=== PATIENT | female | born 1965 | race Caucasian/White ===

== ENCOUNTER 2017-12-17 11:17 | Outpatient (CLI) | payer OTHER ==
[~2017-12-17 11:17] MED LIST: CALC-216 PO; CHRO400T6 PO; CINN500C7 PO; CLIN-79 PO; DIPH-423 PO; FISH1CAP14 PO; KEN0.1O TP; LISI-600 PO; LUTE20CA PO; MELA1TAB21 PO; MULT-1179 PO; [UNRECOGNIZED DRUG - CODE] PO; [UNRECOGNIZED DRUG - OTHER] PO
[2017-12-17 12:19] LABS: ALANINE AMINOTRANSFERASE 29 U/L (12-78); ALBUMIN 3.9 G/DL (3.4-5.0); ALBUMIN/GLOBULIN RATIO 1.1 (1.1-1.5); ALKALINE PHOSPHATASE 72 IU/L (46-116); ANION GAP 7 (8-16); ASPARTATE AMINO TRANSFERASE 14 U/L (10-37); BILIRUBIN,TOTAL 0.3 MG/DL (0.1-1.0); BLOOD UREA NITROGEN 16 MG/DL (7-18); BUN/CREATININE RATIO 21.9 (6.6-38.0); CHLORIDE 107 MMOL/L (99-107); CHOL/HDL RATIO 4.6 (0.00-4.99); CHOLESTEROL 162 MG/DL (0-200); CREATININE 0.73 MG/DL (0.40-0.90); GLUCOSE 89 MG/DL (70-104); HDL CHOLESTEROL 35 MG/DL (35-60); LDL CHOLESTEROL 99 MG/DL (50-100); POTASSIUM 4.1 MMOL/L (3.5-5.1); SODIUM 142 MMOL/L (135-145); TOTAL CARBON DIOXIDE 27.8 MMOL/L (24-32); TOTAL PROTEIN 7.6 G/DL (6.4-8.2); TRIGLYCERIDES 187 MG/DL (20-135); eGFR 83 ML/MIN
== END 2017-12-17 23:59 | disposition home or self-care (01) ==
LOC: LAB 11:17
PROVIDERS: ATTEND Family Medicine
DX: E78.5 Hyperlipidemia, unspecified (principal); I10 Essential (primary) hypertension; J45.909 Unspecified asthma, uncomplicated; Z67.40 Type O blood, Rh positive
CPT/HCPCS: 36415; 80053; 80061

== ENCOUNTER 2018-01-13 12:39 | Outpatient (CLI) | payer OTHER | END 2018-01-13 23:59 | disposition home or self-care (01) | LOC: RAD 12:39 | PROVIDERS: ATTEND Family Medicine | DX: M23.241 Derangement of anterior horn of lateral meniscus due to old tear or injury, right knee (principal); M25.461 Effusion, right knee; M17.11 Unilateral primary osteoarthritis, right knee | CPT/HCPCS: 73721 ==

== ENCOUNTER 2018-03-17 08:35 | Day surgery (SDC) | payer OTHER ==
[2018-03-09 15:31] LABS: BASOPHILS % (AUTO) 0.5 % (0-1); EOSINOPHILS # (AUTO) 0.2 X10'3 (0-0.9); EOSINOPHILS % (AUTO) 2.6 % (0-6); LYMPHOCYTES # (AUTO) 1.7 X10'3 (1.1-4.8); LYMPHOCYTES % (AUTO) 20.3 % (21-51); MEAN CORPUSCULAR HGB CONC 34.5 % (33.0-36.5); MEAN CORPUSCULAR VOLUME 86.8 FL (78-98); MEAN PLATELET VOLUME 8.9 FL (7.4-10.4); MONOCYTES # (AUTO) 0.5 X10'3 (0-0.9); MONOCYTES % (AUTO) 5.9 % (2-12); NEUTROPHILS # (AUTO) 5.8 X10'3 (1.8-7.7); NEUTROPHILS % (AUTO) 70.7 % (42-75); PRE OP HEMATOCRIT 39.7 % (35.0-45.0); PRE OP HEMOGLOBIN 13.7 g/dL (12.0-16.0); PRE OP PLATELET COUNT 219 X10'3 (140-440); RED BLOOD COUNT 4.57 X10'6 (4.20-5.60); RED CELL DISTRIBUTION WIDTH 12.7 % (11.5-14.5)
[2018-03-09 15:47] LABS: ALBUMIN 3.7 G/DL (3.4-5.0); ALBUMIN/GLOBULIN RATIO 1.1 (1.1-1.5); ALKALINE PHOSPHATASE 65 IU/L (46-116); BLOOD UREA NITROGEN 17 MG/DL (7-18); BUN/CREATININE RATIO 20.7 (6.6-38.0); CALCIUM 8.9 MG/DL (8.5-10.1); CHLORIDE 107 MMOL/L (99-107); CREATININE 0.82 MG/DL (0.40-0.90); PRE OP ALT 26 U/L (30-65); PRE OP ANION GAP 6 (8-16); PRE OP AST 14 U/L (10-37); PRE OP BILIRUB, TOTAL 0.3 MG/DL (0.0-1.0); PRE OP GLUCOSE 96 MG/DL (70-104); PRE OP POTASSIUM 3.9 MMOL/L (3.4-5.1); PRE OP SODIUM 144 MMOL/L (135-145); TOTAL CARBON DIOXIDE 31.1 MMOL/L (24-32); eGFR 73 ML/MIN
[2018-03-17] VITALS (13 sets, daily range): BP systolic 102–143; BP diastolic 55–82
[~2018-03-17] VITALS: Ht 160 cm; Wt 87.7 kg
[~2018-03-17 08:35] MED LIST changes: +ACET-2319 PO; +AMLO5TAB4 PO; -CALC-216 PO; -CHRO400T6 PO; -CINN500C7 PO; -CLIN-79 PO; -DIPH-423 PO; -FISH1CAP14 PO; +IBUP200C5 PO; -KEN0.1O TP; -LISI-600 PO; -LUTE20CA PO; -MULT-1179 PO; -[UNRECOGNIZED DRUG - CODE] PO; -[UNRECOGNIZED DRUG - OTHER] PO; +ceFAZolin inj. 2,000 MG in normal saline 100ml IV soln 100 ML IV ONE; +famotidine 20mg tablet PO ONE; +ringers solution, lacted 1,000 ML IV SCH
[2018-03-17] MEDS ORDERED: propofol inj 20 ML IV ONE (09:22)
[2018-03-17] MEDS ORDERED: LIDOcaine 2% (20mg/ml) 5ml vial ONE (09:22)
[2018-03-17] MEDS ORDERED: ROPIVAcaine 0.5% (5mg/ml) 30ml vial ONE (09:39)
[2018-03-17] MEDS ORDERED: sevoflurane 250ml liquid IH ONE (10:48)
[2018-03-17] MEDS ORDERED: fentaNYL/PF 50MCG/1 ML 2ML syringe ONE ×2 (10:49→11:05)
[2018-03-17] MEDS ORDERED: midazolam 2 mg/2 ml injection ONE (10:56)
[2018-03-17] MEDS ORDERED: ringers solution, lacted 1,000 ML IV SCH (11:32)
[2018-03-17] MEDS ORDERED: morphine 4 MG/ML inj SYRINge IV PRN ×2 (11:35)
[2018-03-17] MEDS ORDERED: meperidine/PF 25mg/ml syringe IV PRN ×2 (11:35)
[2018-03-17] MEDS ORDERED: ondansetron/PF 4mg/2ml inj IV PRN (11:35)
[2018-03-17] MEDS ORDERED: proCHLORperazine 10 MG/2 ml inj IV PRN (11:35)
[2018-03-17] MEDS ORDERED: ondansetron/PF 4mg/2ml inj ONE (12:04)
[2018-03-17] MEDS ORDERED: dexamethasone sod phosphate 4mg/ml inj. ONE (12:04)
[2018-03-17] MEDS: meperidine/PF 25mg/ml syringe IV PRN ×2 (12:07→12:23)
[2018-03-17] MEDS ORDERED: acetaminophen 1,000mg/100ml IV 100 ML IV ONE (13:10)
== END 2018-03-17 13:35 | disposition home or self-care (01) ==
LOC: PAS 08:35
PROVIDERS: ATTEND Orthopaedic Surgery
DX: S83.281A Other tear of lateral meniscus, current injury, right knee, initial encounter (principal); I10 Essential (primary) hypertension; E66.9 Obesity, unspecified; J45.998 Other asthma; M19.90 Unspecified osteoarthritis, unspecified site; Z79.1 Long term (current) use of non-steroidal anti-inflammatories (NSAID); Z79.891 Long term (current) use of opiate analgesic; Z68.34 Body mass index [BMI] 34.0-34.9, adult; Z72.89 Other problems related to lifestyle; Z88.2 Allergy status to sulfonamides; Z79.899 Other long term (current) drug therapy; Z90.710 Acquired absence of both cervix and uterus; X58.XXXA Exposure to other specified factors, initial encounter; Y93.89 Activity, other specified; Y92.89 Other specified places as the place of occurrence of the external cause; Y99.8 Other external cause status
CPT/HCPCS: 0232T; 29879; 29881; 36415; 80053; 85025; 93005; A6449; J0131; J0690; J1100; J2001; J2175; J2250; J2405; J2704; J2795; J3010; J7030; J7120; A7000

== ENCOUNTER 2018-03-23 13:53 | Outpatient (CLI) | payer OTHER ==
[~2018-03-23 13:53] MED LIST changes: -ceFAZolin inj. 2,000 MG in normal saline 100ml IV soln 100 ML IV ONE; -famotidine 20mg tablet PO ONE; -ringers solution, lacted 1,000 ML IV SCH
== END 2018-03-23 23:59 | disposition home or self-care (01) ==
LOC: VAS 13:53
PROVIDERS: ATTEND Orthopaedic Surgery
DX: I82.4Z1 Acute embolism and thrombosis of unspecified deep veins of right distal lower extremity (principal); I10 Essential (primary) hypertension; J45.909 Unspecified asthma, uncomplicated
CPT/HCPCS: 93971

== ENCOUNTER 2018-04-22 15:40 | Outpatient (CLI) | payer OTHER | END 2018-04-22 23:59 | disposition home or self-care (01) | LOC: VAS 15:40 | PROVIDERS: ATTEND Orthopaedic Surgery | DX: I82.4Z1 Acute embolism and thrombosis of unspecified deep veins of right distal lower extremity (principal); I10 Essential (primary) hypertension; J45.909 Unspecified asthma, uncomplicated | CPT/HCPCS: 93971 ==

== ENCOUNTER 2018-05-21 08:43 | Outpatient (CLI) | payer OTHER | END 2018-05-21 23:59 | disposition home or self-care (01) | LOC: VAS 08:43 | PROVIDERS: ATTEND Orthopaedic Surgery | DX: I82.541 Chronic embolism and thrombosis of right tibial vein (principal); M79.604 Pain in right leg | CPT/HCPCS: 93970 ==

== ENCOUNTER 2018-09-04 06:25 | Emergency (ER) | payer OTHER ==
[~2018-09-04] VITALS: Ht 160 cm; Wt 90.0 kg
[2018-09-04 07:09] LABS: CLARITY,URINE CLEAR (Clear); COLOR,URINE ORANGE (Yellow)
[2018-09-04 07:12] LABS: UA COLLECTION TYPE CLN CATCH MIDSTREAM
[2018-09-04 07:14] VITALS: BP 143/74
[2018-09-04 07:18] LABS: RBC,URINE 0-2 /HPF (0-2); WBC,URINE 0-4 /HPF (0-4)
[2018-09-04 07:19] LABS: MUCUS STRANDS MODERATE /LPF (Neg); SQUAMOUS EPITHELIAL CELL,UR FEW /LPF (FEW)
[2018-09-04] MEDS ORDERED: PHEN-786 PO (07:19)
[2018-09-04] MEDS ORDERED: CEPH500C5 PO (07:19)
[2018-09-04 07:20] LABS: BACTERIA,URINE 1+ /HPF (Neg)
[2018-09-04] MEDS ORDERED: phenazopyridine 100mg tablet PO ONE (07:20)
[2018-09-04] MEDS ORDERED: cephalexin 250mg capsule PO ONE (07:20)
== END 2018-09-04 07:41 | disposition home or self-care (01) ==
LOC: ER 06:26
DX: N39.0 Urinary tract infection, site not specified (principal); Z88.2 Allergy status to sulfonamides; Z79.899 Other long term (current) drug therapy; Z90.710 Acquired absence of both cervix and uterus
CPT/HCPCS: 81001; 99283

== ENCOUNTER 2019-06-15 07:47 | Outpatient (CLI) | payer OTHER ==
[~2019-06-15 07:47] MED LIST changes: +CEPH500C5 PO; +PHEN-786 PO
[2019-06-15 08:34] LABS: ALANINE AMINOTRANSFERASE 28 U/L (12-78); ALBUMIN 3.9 G/DL (3.4-5.0); ALBUMIN/GLOBULIN RATIO 1.1 (1.1-1.5); ALKALINE PHOSPHATASE 70 IU/L (46-116); ANION GAP 8 (8-16); ASPARTATE AMINO TRANSFERASE 12 U/L (10-37); BILIRUBIN,TOTAL 0.3 MG/DL (0.1-1.0); BLOOD UREA NITROGEN 15 MG/DL (7-18); BUN/CREATININE RATIO 19.5 (6.6-38.0); CALCIUM 8.6 MG/DL (8.5-10.1); CHLORIDE 107 MMOL/L (99-107); CHOL/HDL RATIO 4.1 (0.00-4.99); CHOLESTEROL 170 MG/DL (0-200); CREATININE 0.77 MG/DL (0.40-0.90); GLUCOSE 93 MG/DL (70-104); HDL CHOLESTEROL 41 MG/DL (35-60); LDL CHOLESTEROL 103 MG/DL (50-100); POTASSIUM 4.1 MMOL/L (3.5-5.1); SODIUM 144 MMOL/L (135-145); TOTAL CARBON DIOXIDE 29.2 MMOL/L (24-32); TOTAL PROTEIN 7.3 G/DL (6.4-8.2); TRIGLYCERIDES 174 MG/DL (20-135); eGFR 78 ML/MIN
== END 2019-06-15 23:59 | disposition home or self-care (01) ==
LOC: LAB 07:47
PROVIDERS: ATTEND Family Medicine
DX: Z00.00 Encounter for general adult medical examination without abnormal findings (principal)
CPT/HCPCS: 36415; 80053; 80061

== ENCOUNTER 2020-03-14 06:42 | Day surgery (SDC) | payer OTHER ==
[~2020-03-14] VITALS: Ht 160 cm; Wt 82.7 kg
[~2020-03-14 06:42] MED LIST changes: -CEPH500C5 PO
[2020-03-14 06:52] VITALS: BP 143/87
[2020-03-14] MEDS ORDERED: fentaNYL/PF 50MCG/1 ML 2ML syringe ONE (06:54)
[2020-03-14] MEDS ORDERED: MIDAZolam 5mg/5ml vial ONE (06:55)
[2020-03-14 07:43] VITALS: BP 130/75
[2020-03-14 07:53] VITALS: BP 124/62
[2020-03-14 08:03] VITALS: BP 120/66
[2020-03-14 08:13] VITALS: BP 135/67
== END 2020-03-14 08:25 | disposition home or self-care (01) ==
LOC: GI LAB 06:42
PROVIDERS: ATTEND Internal Medicine Gastroenterology
DX: Z12.11 Encounter for screening for malignant neoplasm of colon (principal); D12.2 Benign neoplasm of ascending colon; K57.30 Diverticulosis of large intestine without perforation or abscess without bleeding
CPT/HCPCS: 45380; 99152; J2250; J3010; 99153

== ENCOUNTER 2022-05-06 09:07 | Outpatient (CLI) | payer BC ==
[~2022-05-06 09:07] MED LIST changes: -IBUP200C5 PO; -MELA1TAB21 PO; -PHEN-786 PO
[2022-05-06 09:56] LABS: BASOPHILS % (AUTO) 0.8 % (0-1); EOSINOPHILS # (AUTO) 0.2 X10'3 (0-0.9); EOSINOPHILS % (AUTO) 3.2 % (0-6); HEMATOCRIT 41.2 % (35.0-45.0); HEMOGLOBIN 13.5 g/dl (12.0-16.0); LYMPHOCYTES # (AUTO) 1.3 X10'3 (1.1-4.8); LYMPHOCYTES % (AUTO) 23.1 % (21-51); MEAN CORPUSCULAR HEMOGLOBIN 28.8 PG (27.0-31.0); MEAN CORPUSCULAR HGB CONC 32.8 g/dL (33.0-36.5); MEAN CORPUSCULAR VOLUME 87.8 FL (78-98); MEAN PLATELET VOLUME 8.9 FL (7.4-10.4); MONOCYTES # (AUTO) 0.4 X10'3 (0-0.9); MONOCYTES % (AUTO) 8.1 % (2-12); NEUTROPHILS # (AUTO) 3.5 X10'3 (1.8-7.7); NEUTROPHILS % (AUTO) 64.8 % (42-75); PLATELET COUNT 192 X10'3 (140-440); RED BLOOD COUNT 4.69 X10'6 (4.20-5.60); WHITE BLOOD COUNT 5.5 X10'3 (4.5-11.0)
[2022-05-06 10:10] LABS: CLARITY,URINE SLIGHTLY CLOUDY (Clear); COLOR,URINE YELLOW (Yellow); GLUCOSE, URINE NEGATIVE (Neg); KETONES,URINE NEGATIVE (Neg); LEUKOCYTE ESTERASE ,URINE NEGATIVE (Neg); NITRITES, URINE NEGATIVE (Neg); OCCULT BLOOD,URINE NEGATIVE (Neg); PH,URINE 5.5 (4.8-8.0); PROTEIN,URINE NEGATIVE (Neg); UROBILINOGEN,URINE 0.2 E.U/dL (0.2-1.0)
[2022-05-06 10:11] LABS: ALANINE AMINOTRANSFERASE 34 U/L (12-78); ALBUMIN 3.5 G/DL (3.4-5.0); ALKALINE PHOSPHATASE 70 IU/L (46-116); ANION GAP 8 (8-16); ASPARTATE AMINO TRANSFERASE 14 U/L (10-37); BILIRUBIN,TOTAL 0.3 MG/DL (0.1-1.0); BLOOD UREA NITROGEN 16 MG/DL (7-18); BUN/CREATININE RATIO 25.8 (6.6-38.0); CALCIUM 8.3 MG/DL (8.5-10.1); CHLORIDE 109 MMOL/L (99-107); CHOLESTEROL 164 MG/DL (0-200); CREATININE 0.62 MG/DL (0.40-0.90); GLUCOSE 106 MG/DL (70-104); HDL CHOLESTEROL 41 MG/DL (35-60); LDL CHOLESTEROL 95 MG/DL (50-100); POTASSIUM 3.8 MMOL/L (3.5-5.1); SODIUM 144 MMOL/L (135-145); TOTAL CARBON DIOXIDE 26.6 MMOL/L (24-32); TOTAL PROTEIN 7.1 G/DL (6.4-8.2); TRIGLYCERIDES 148 MG/DL (20-135); eGFR > 90 ML/MIN
[2022-05-06 11:01] LABS: MUCUS STRANDS FEW /LPF (Neg); SQUAMOUS EPITHELIAL CELL,UR FEW /LPF (FEW); UA COLLECTION TYPE NON-SPECIFIED
[2022-05-06 11:02] LABS: BACTERIA,URINE 1+ /HPF (Neg); RBC,URINE 0-2 /HPF (0-2); WBC,URINE 0-4 /HPF (0-4)
== END 2022-05-06 23:59 | disposition home or self-care (01) ==
LOC: LAB 09:07
PROVIDERS: ATTEND Internal Medicine
DX: R53.83 Other fatigue (principal); R63.5 Abnormal weight gain; R78.5 Finding of other psychotropic drug in blood; I10 Essential (primary) hypertension; M79.671 Pain in right foot; M79.672 Pain in left foot; M25.561 Pain in right knee; M25.562 Pain in left knee; G89.29 Other chronic pain
CPT/HCPCS: 36415; 80053; 80061; 81001; 82607; 82746; 84439; 84443; 85025; 85651

== ENCOUNTER 2022-08-04 11:06 | Outpatient (CLI) | payer BC | END 2022-08-04 23:59 | disposition home or self-care (01) | LOC: RAD 11:06 → EEVIPCON 11:30 → RAD 23:59 | PROVIDERS: ATTEND Podiatrist Foot & Ankle Surgery | DX: S93.492A Sprain of other ligament of left ankle, initial encounter (principal); M25.871 Other specified joint disorders, right ankle and foot; M76.62 Achilles tendinitis, left leg; M76.61 Achilles tendinitis, right leg; M76.71 Peroneal tendinitis, right leg; X58.XXXA Exposure to other specified factors, initial encounter; Y93.89 Activity, other specified; Y92.89 Other specified places as the place of occurrence of the external cause; Y99.8 Other external cause status | CPT/HCPCS: 73718; 73721 ==

== ENCOUNTER 2022-08-28 07:29 | Outpatient (CLI) | payer BC ==
[2022-08-28 08:15] LABS: BASOPHILS # (AUTO) 0.1 X10'3 (0-0.2); BASOPHILS % (AUTO) 1.1 % (0-1); EOSINOPHILS # (AUTO) 0.1 X10'3 (0-0.9); EOSINOPHILS % (AUTO) 2.9 % (0-6); HEMATOCRIT 42.3 % (35.0-45.0); HEMOGLOBIN 14.5 g/dl (12.0-16.0); LYMPHOCYTES # (AUTO) 1.5 X10'3 (1.1-4.8); LYMPHOCYTES % (AUTO) 31.1 % (21-51); MEAN CORPUSCULAR HEMOGLOBIN 29.4 PG (27.0-31.0); MEAN CORPUSCULAR HGB CONC 34.1 g/dL (33.0-36.5); MEAN PLATELET VOLUME 8.3 FL (7.4-10.4); MONOCYTES # (AUTO) 0.5 X10'3 (0-0.9); NEUTROPHILS # (AUTO) 2.6 X10'3 (1.8-7.7); NEUTROPHILS % (AUTO) 54.9 % (42-75); PLATELET COUNT 198 X10'3 (140-440); RED BLOOD COUNT 4.92 X10'6 (4.20-5.60); RED CELL DISTRIBUTION WIDTH 13.1 % (11.5-14.5); WHITE BLOOD COUNT 4.8 X10'3 (4.5-11.0)
[2022-08-28 08:27] LABS: ALANINE AMINOTRANSFERASE 43 U/L (12-78); ALBUMIN 3.7 G/DL (3.4-5.0); ALBUMIN/GLOBULIN RATIO 1.1 (1.1-1.5); ALKALINE PHOSPHATASE 77 IU/L (46-116); ANION GAP 8 (8-16); ASPARTATE AMINO TRANSFERASE 23 U/L (10-37); BILIRUBIN,TOTAL 0.3 MG/DL (0.1-1.0); BLOOD UREA NITROGEN 17 MG/DL (7-18); BUN/CREATININE RATIO 19.3 (6.6-38.0); CALCIUM 8.9 MG/DL (8.5-10.1); CHLORIDE 106 MMOL/L (99-107); CHOL/HDL RATIO 4.3 (0.00-4.99); CHOLESTEROL 202 MG/DL (0-200); CREATININE 0.88 MG/DL (0.40-0.90); GLUCOSE 118 MG/DL (70-104); HDL CHOLESTEROL 47 MG/DL (35-60); LDL CHOLESTEROL 122 MG/DL (50-100); POTASSIUM 3.8 MMOL/L (3.5-5.1); SODIUM 143 MMOL/L (135-145); TOTAL CARBON DIOXIDE 28.9 MMOL/L (24-32); TOTAL PROTEIN 7.1 G/DL (6.4-8.2); TRIGLYCERIDES 192 MG/DL (20-135); eGFR 66 ML/MIN
[2022-08-28 08:29] LABS: % IRON SATURATION 30 % (11-46); IRON 96 UG/DL (49-151); TOTAL IRON BINDING CAPACITY 322 UG/DL (259-388)
[2022-08-28 09:11] LABS: HEMOGLOBIN A1C 5.9 % (4.5-6.2)
== END 2022-08-28 23:59 | disposition home or self-care (01) ==
LOC: LAB 07:29
PROVIDERS: ATTEND Internal Medicine
DX: U07.1 COVID-19 (principal); R71.8 Other abnormality of red blood cells; R53.82 Chronic fatigue, unspecified; R63.5 Abnormal weight gain; M76.62 Achilles tendinitis, left leg; R73.01 Impaired fasting glucose; E78.2 Mixed hyperlipidemia; I10 Essential (primary) hypertension
CPT/HCPCS: 36415; 80053; 80061; 83036; 83540; 83550; 85025

== ENCOUNTER 2023-01-26 10:24 | Outpatient (CLI) | payer BC ==
[2023-01-26 10:51] LABS: BASOPHILS % (AUTO) 0.8 % (0-1); EOSINOPHILS # (AUTO) 0.1 X10'3 (0-0.9); EOSINOPHILS % (AUTO) 2.4 % (0-6); HEMATOCRIT 42.7 % (35.0-45.0); HEMOGLOBIN 14.1 g/dl (12.0-16.0); LYMPHOCYTES # (AUTO) 1.6 X10'3 (1.1-4.8); LYMPHOCYTES % (AUTO) 28.3 % (21-51); MEAN CORPUSCULAR HEMOGLOBIN 29.3 PG (27.0-31.0); MEAN CORPUSCULAR HGB CONC 33.1 g/dL (33.0-36.5); MEAN CORPUSCULAR VOLUME 88.5 FL (78-98); MEAN PLATELET VOLUME 8.4 FL (7.4-10.4); MONOCYTES # (AUTO) 0.5 X10'3 (0-0.9); MONOCYTES % (AUTO) 8.2 % (2-12); NEUTROPHILS # (AUTO) 3.4 X10'3 (1.8-7.7); NEUTROPHILS % (AUTO) 60.3 % (42-75); PLATELET COUNT 207 X10'3 (140-440); RED BLOOD COUNT 4.82 X10'6 (4.20-5.60); RED CELL DISTRIBUTION WIDTH 12.5 % (11.5-14.5); WHITE BLOOD COUNT 5.6 X10'3 (4.5-11.0)
[2023-01-26 11:05] LABS: ALANINE AMINOTRANSFERASE 32 U/L (12-78); ALBUMIN 3.7 G/DL (3.4-5.0); ALBUMIN/GLOBULIN RATIO 1.1 (1.1-1.5); ALKALINE PHOSPHATASE 68 IU/L (46-116); ANION GAP 9 (8-16); ASPARTATE AMINO TRANSFERASE 19 U/L (10-37); BILIRUBIN,TOTAL 0.3 MG/DL (0.1-1.0); BLOOD UREA NITROGEN 14 MG/DL (7-18); BUN/CREATININE RATIO 18.9 (10.0-20.0); CALCIUM 8.7 MG/DL (8.5-10.1); CHLORIDE 106 MMOL/L (99-107); CREATININE 0.74 MG/DL (0.40-0.90); GLUCOSE 115 MG/DL (70-104); POTASSIUM 4.2 MMOL/L (3.5-5.1); SODIUM 144 MMOL/L (135-145); TOTAL CARBON DIOXIDE 29.2 MMOL/L (24-32); TOTAL PROTEIN 7.1 G/DL (6.4-8.2); eGFR 80 ML/MIN
[2023-01-26 11:13] LABS: HEMOGLOBIN A1C 6.1 % (4.5-6.2)
[2023-01-26 11:15] LABS: CHOL/HDL RATIO 4.3 (0.00-4.99); CHOLESTEROL 182 MG/DL (0-200); HDL CHOLESTEROL 42 MG/DL (35-60); LDL CHOLESTEROL 106 MG/DL (50-100); TRIGLYCERIDES 186 MG/DL (20-135)
== END 2023-01-26 23:59 | disposition home or self-care (01) ==
LOC: LAB 10:24
PROVIDERS: ATTEND Internal Medicine
DX: E78.2 Mixed hyperlipidemia (principal); I10 Essential (primary) hypertension; R73.01 Impaired fasting glucose; R53.82 Chronic fatigue, unspecified; R63.5 Abnormal weight gain; L23.9 Allergic contact dermatitis, unspecified cause; M76.61 Achilles tendinitis, right leg; M76.62 Achilles tendinitis, left leg; M72.2 Plantar fascial fibromatosis
CPT/HCPCS: 36415; 80053; 80061; 83036; 84439; 84443; 85025; 85651

== ENCOUNTER 2023-06-25 15:59 | Emergency (ER) | payer BC ==
[~2023-06-25] VITALS: Ht 160 cm; Wt 94.5 kg
[2023-06-25 16:09] VITALS: BP 190/81; PULSE 77; RESP 16; TEMP 98.3; O2SAT 98
[2023-06-25 17:17] LABS: CLARITY,URINE CLEAR (Clear); COLOR,URINE ORANGE (Yellow); UA COLLECTION TYPE CLN CATCH MIDSTREAM
[2023-06-25 17:18] LABS: BACTERIA,URINE NONE SEEN /HPF (Neg); RBC,URINE NONE SEEN /HPF (0-2); SQUAMOUS EPITHELIAL CELL,UR FEW /LPF (FEW); WBC,URINE NONE SEEN /HPF (0-4)
[2023-06-25] MEDS ORDERED: CEPH-585 PO (20:03)
[2023-06-25] MEDS ORDERED: cephalexin 500mg capsule PO ONE (20:05)
== END 2023-06-25 20:22 | disposition home or self-care (01) ==
LOC: ER 15:59
DX: R30.0 Dysuria (principal); Z87.440 Personal history of urinary (tract) infections; Z88.1 Allergy status to other antibiotic agents; Z79.2 Long term (current) use of antibiotics; Z79.899 Other long term (current) drug therapy; Z90.710 Acquired absence of both cervix and uterus
CPT/HCPCS: 81001; 99283

== ENCOUNTER 2023-08-03 10:06 | Outpatient (CLI) | payer BC ==
[2023-08-03 11:05] LABS: BASOPHILS # (AUTO) 0.1 X10'3 (0-0.2); EOSINOPHILS # (AUTO) 0.1 X10'3 (0-0.9); EOSINOPHILS % (AUTO) 2.4 % (0-6); HEMOGLOBIN 14.2 g/dl (12.0-16.0); LYMPHOCYTES # (AUTO) 1.4 X10'3 (1.1-4.8); LYMPHOCYTES % (AUTO) 27.5 % (21-51); MEAN CORPUSCULAR HEMOGLOBIN 29.2 PG (27.0-31.0); MEAN CORPUSCULAR VOLUME 88.7 FL (78-98); MEAN PLATELET VOLUME 8.7 FL (7.4-10.4); MONOCYTES # (AUTO) 0.4 X10'3 (0-0.9); MONOCYTES % (AUTO) 7.9 % (2-12); NEUTROPHILS # (AUTO) 3.2 X10'3 (1.8-7.7); NEUTROPHILS % (AUTO) 61.2 % (42-75); PLATELET COUNT 224 X10'3 (140-440); RED BLOOD COUNT 4.85 X10'6 (4.20-5.60); RED CELL DISTRIBUTION WIDTH 13.1 % (11.5-14.5); WHITE BLOOD COUNT 5.2 X10'3 (4.5-11.0)
[2023-08-03 11:36] LABS: ALANINE AMINOTRANSFERASE 27 U/L (12-78); ALBUMIN 3.7 G/DL (3.4-5.0); ALBUMIN/GLOBULIN RATIO 1.1 (1.1-1.5); ALKALINE PHOSPHATASE 75 IU/L (46-116); ANION GAP 5 (8-16); ASPARTATE AMINO TRANSFERASE 15 U/L (10-37); BILIRUBIN,TOTAL 0.3 MG/DL (0.1-1.0); BLOOD UREA NITROGEN 13 MG/DL (7-18); BUN/CREATININE RATIO 17.6 (10.0-20.0); CALCIUM 8.7 MG/DL (8.5-10.1); CHLORIDE 104 MMOL/L (99-107); CHOL/HDL RATIO 4.4 (0.00-4.99); CHOLESTEROL 189 MG/DL (0-200); CREATININE 0.74 MG/DL (0.40-0.90); FREE T4 (FREE THYROXINE) 0.95 NG/DL (0.73-1.40); GLUCOSE 105 MG/DL (70-104); HDL CHOLESTEROL 43 MG/DL (35-60); LDL CHOLESTEROL 109 MG/DL (50-100); POTASSIUM 3.9 MMOL/L (3.5-5.1); SODIUM 139 MMOL/L (135-145); THYROID STIMULATING HORMONE 1.75 ulU/ml (0.34-4.50); TOTAL CARBON DIOXIDE 29.6 MMOL/L (24-32); TOTAL PROTEIN 7.1 G/DL (6.4-8.2); TRIGLYCERIDES 217 MG/DL (20-135); eGFR 80 ML/MIN
[2023-08-03 11:38] LABS: HEMOGLOBIN A1C 6.1 % (4.5-6.2)
== END 2023-08-03 23:59 | disposition home or self-care (01) ==
LOC: LAB 10:06
PROVIDERS: ATTEND Internal Medicine
DX: R73.03 Prediabetes (principal); M25.561 Pain in right knee; M25.562 Pain in left knee; G89.29 Other chronic pain; M79.671 Pain in right foot; M79.672 Pain in left foot; L30.9 Dermatitis, unspecified; R63.5 Abnormal weight gain; I10 Essential (primary) hypertension; E78.2 Mixed hyperlipidemia
CPT/HCPCS: 36415; 80053; 80061; 83036; 84439; 84443; 85025; 85651

== ENCOUNTER 2023-09-15 12:27 | Outpatient (CLI) | payer BC | END 2023-09-15 23:59 | disposition home or self-care (01) | LOC: RAD 12:27 | PROVIDERS: ATTEND Orthopaedic Surgery | DX: M17.11 Unilateral primary osteoarthritis, right knee (principal); M85.88 Other specified disorders of bone density and structure, other site; M25.78 Osteophyte, vertebrae; M25.561 Pain in right knee | CPT/HCPCS: 73564 ==

== ENCOUNTER → 2023-11-02 | Outpatient (CLI) | payer BC | END | disposition home or self-care (01) | LOC: VAS 08:47 | PROVIDERS: ATTEND Family Medicine | DX: I34.81 Nonrheumatic mitral (valve) annulus calcification (principal); I20.89 Other forms of angina pectoris; I10 Essential (primary) hypertension; R42 Dizziness and giddiness; Z82.49 Family history of ischemic heart disease and other diseases of the circulatory system | CPT/HCPCS: 93306; 93356; 93880 ==

== ENCOUNTER 2023-11-11 07:58 | Emergency (ER) | payer BC ==
[~2023-11-11] VITALS: Ht 160 cm; Wt 94.1 kg
[2023-11-11 10:40] LABS: URINE HCG NEGATIVE (NEG)
[2023-11-11 10:41] LABS: CLARITY,URINE SLIGHTLY CLOUDY (Clear); COLOR,URINE ORANGE (Yellow); UA COLLECTION TYPE CLN CATCH MIDSTREAM
[2023-11-11 10:50] LABS: HYALINE CASTS 0-3 /LPF (NEGATIVE); MUCUS STRANDS MODERATE /LPF (Neg); SQUAMOUS EPITHELIAL CELL,UR FEW /LPF (FEW)
[2023-11-11 10:51] LABS: BACTERIA,URINE FEW /HPF (Neg); RBC,URINE 0-2 /HPF (0-2); WBC,URINE 0-4 /HPF (0-4)
[2023-11-11] MEDS ORDERED: PHEN-716 PO (12:48)
[2023-11-11] MEDS ORDERED: CefTRIAXone 1000mg IM Kit (w/lidocaine diluent) IM ONE (12:50)
[2023-11-11 13:00] VITALS: BP 169/88; PULSE 60; RESP 18; TEMP 98.1; O2SAT 100
== END 2023-11-11 13:02 | disposition home or self-care (01) ==
LOC: ER 07:59
DX: N39.0 Urinary tract infection, site not specified (principal); Z90.710 Acquired absence of both cervix and uterus
CPT/HCPCS: 81001; 81025; 96372; 99283; J0696

== ENCOUNTER 2023-11-16 17:50 | Emergency (ER) | payer BC ==
[~2023-11-16] VITALS: Ht 160 cm; Wt 93.6 kg
[~2023-11-16 17:50] MED LIST changes: +PHEN-716 PO
[2023-11-16 18:44] VITALS: TEMP 98
[2023-11-16 19:26] LABS: BILIRUBIN,URINE NEGATIVE (Neg); CLARITY,URINE CLEAR (Clear); COLOR,URINE YELLOW (Yellow); GLUCOSE, URINE NEGATIVE (Neg); KETONES,URINE NEGATIVE (Neg); LEUKOCYTE ESTERASE ,URINE NEGATIVE (Neg); NITRITES, URINE NEGATIVE (Neg); OCCULT BLOOD,URINE NEGATIVE (Neg); PROTEIN,URINE NEGATIVE (Neg); UROBILINOGEN,URINE 0.2 E.U/dL (0.2-1.0)
[2023-11-16 19:31] LABS: UA COLLECTION TYPE CLN CATCH MIDSTREAM
[2023-11-16 23:07] LABS: BILIRUBIN,URINE NEGATIVE (Neg); CLARITY,URINE CLEAR (Clear); COLOR,URINE YELLOW (Yellow); GLUCOSE, URINE NEGATIVE (Neg); KETONES,URINE NEGATIVE (Neg); LEUKOCYTE ESTERASE ,URINE NEGATIVE (Neg); NITRITES, URINE NEGATIVE (Neg); OCCULT BLOOD,URINE NEGATIVE (Neg); PROTEIN,URINE NEGATIVE (Neg); UROBILINOGEN,URINE 0.2 E.U/dL (0.2-1.0)
[2023-11-16 23:09] LABS: UA COLLECTION TYPE CLN CATCH MIDSTREAM
[2023-11-16 23:12] LABS: BASOPHILS # (AUTO) 0.1 X10'3 (0-0.2); BASOPHILS % (AUTO) 0.9 % (0-1); EOSINOPHILS # (AUTO) 0.2 X10'3 (0-0.9); EOSINOPHILS % (AUTO) 2.5 % (0-6); HEMATOCRIT 46.1 % (35.0-45.0); HEMOGLOBIN 15.2 g/dl (12.0-16.0); LYMPHOCYTES # (AUTO) 2.5 X10'3 (1.1-4.8); LYMPHOCYTES % (AUTO) 33.6 % (21-51); MEAN CORPUSCULAR HEMOGLOBIN 29.2 PG (27.0-31.0); MEAN CORPUSCULAR VOLUME 88.5 FL (78-98); MEAN PLATELET VOLUME 8.7 FL (7.4-10.4); MONOCYTES # (AUTO) 0.5 X10'3 (0-0.9); MONOCYTES % (AUTO) 7.1 % (2-12); NEUTROPHILS # (AUTO) 4.2 X10'3 (1.8-7.7); NEUTROPHILS % (AUTO) 55.9 % (42-75); PLATELET COUNT 237 X10'3 (140-440); RED BLOOD COUNT 5.21 X10'6 (4.20-5.60); RED CELL DISTRIBUTION WIDTH 12.9 % (11.5-14.5); WHITE BLOOD COUNT 7.5 X10'3 (4.5-11.0)
[2023-11-16 23:17] VITALS: BP 166/90; PULSE 58; RESP 18; O2SAT 100
[2023-11-16 23:19] LABS: ALBUMIN 4.2 G/DL (3.4-5.0); ANION GAP 9 (8-16); BLOOD UREA NITROGEN 19 MG/DL (7-18); BUN/CREATININE RATIO 26.4 (10.0-20.0); CALCIUM 9.5 MG/DL (8.5-10.1); CHLORIDE 102 MMOL/L (99-107); CREATININE 0.72 MG/DL (0.40-0.90); GLUCOSE 97 MG/DL (70-104); LIPASE 32 U/L (16-77); POTASSIUM 3.6 MMOL/L (3.5-5.1); SODIUM 139 MMOL/L (135-145); TOTAL CARBON DIOXIDE 27.8 MMOL/L (24-32); eCRCL 69 ML/MIN; eGFR 83 ML/MIN
[2023-11-16] MEDS ORDERED: NITR100C6 PO (23:32)
== END 2023-11-16 23:51 | disposition home or self-care (01) ==
LOC: ER 17:50
DX: N39.0 Urinary tract infection, site not specified (principal); Z88.2 Allergy status to sulfonamides; Z79.899 Other long term (current) drug therapy
CPT/HCPCS: 36415; 80048; 81003; 83690; 85025; 99283

== ENCOUNTER 2024-01-06 17:57 | Emergency (ER) | payer BC ==
[~2024-01-06] VITALS: Ht 160 cm; Wt 95.0 kg
[~2024-01-06 17:57] MED LIST changes: +NITR100C6 PO
[2024-01-06 18:55] LABS: BASOPHILS # (AUTO) 0.1 X10'3 (0-0.2); BASOPHILS % (AUTO) 1.4 % (0-1); EOSINOPHILS # (AUTO) 0.1 X10'3 (0-0.9); EOSINOPHILS % (AUTO) 1.5 % (0-6); HEMATOCRIT 44.5 % (35.0-45.0); LYMPHOCYTES # (AUTO) 1.9 X10'3 (1.1-4.8); LYMPHOCYTES % (AUTO) 21.5 % (21-51); MEAN CORPUSCULAR HEMOGLOBIN 29.5 PG (27.0-31.0); MEAN CORPUSCULAR HGB CONC 33.6 g/dL (33.0-36.5); MEAN CORPUSCULAR VOLUME 87.9 FL (78-98); MONOCYTES # (AUTO) 0.7 X10'3 (0-0.9); MONOCYTES % (AUTO) 7.9 % (2-12); NEUTROPHILS # (AUTO) 6.1 X10'3 (1.8-7.7); NEUTROPHILS % (AUTO) 67.7 % (42-75); PLATELET COUNT 229 X10'3 (140-440); RED BLOOD COUNT 5.07 X10'6 (4.20-5.60); RED CELL DISTRIBUTION WIDTH 12.8 % (11.5-14.5); WHITE BLOOD COUNT 8.9 X10'3 (4.5-11.0)
[2024-01-06 19:10] LABS: ALANINE AMINOTRANSFERASE 27 U/L (12-78); ALBUMIN 3.9 G/DL (3.4-5.0); ALBUMIN/GLOBULIN RATIO 1.1 (1.1-1.5); ALKALINE PHOSPHATASE 69 IU/L (46-116); ANION GAP 12 (8-16); ASPARTATE AMINO TRANSFERASE 18 U/L (10-37); BILIRUBIN,TOTAL 0.4 MG/DL (0.1-1.0); BLOOD UREA NITROGEN 17 MG/DL (7-18); CALCIUM 8.8 MG/DL (8.5-10.1); CHLORIDE 106 MMOL/L (99-107); CREATININE 0.85 MG/DL (0.40-0.90); GLUCOSE 89 MG/DL (70-104); LIPASE 25 U/L (16-77); POTASSIUM 3.9 MMOL/L (3.5-5.1); SODIUM 142 MMOL/L (135-145); TOTAL CARBON DIOXIDE 24.1 MMOL/L (24-32); TOTAL PROTEIN 7.5 G/DL (6.4-8.2); eCRCL 58 ML/MIN; eGFR 68 ML/MIN
[2024-01-06] MEDS: ibuprofen tablet 400 MG TABLET PO ONE (23:12)
[2024-01-06] MEDS: acetaminophen 325mg tablet PO ONE (23:13)
[2024-01-06 23:25] LABS: URINE HCG NEGATIVE (NEG)
[2024-01-06 23:27] LABS: BILIRUBIN,URINE NEGATIVE (Neg); CLARITY,URINE CLEAR (Clear); COLOR,URINE STRAW (Yellow); GLUCOSE, URINE NEGATIVE (Neg); KETONES,URINE NEGATIVE (Neg); LEUKOCYTE ESTERASE ,URINE NEGATIVE (Neg); NITRITES, URINE NEGATIVE (Neg); OCCULT BLOOD,URINE NEGATIVE (Neg); PH,URINE 5.5 (4.8-8.0); PROTEIN,URINE NEGATIVE (Neg); UROBILINOGEN,URINE 0.2 E.U/dL (0.2-1.0)
[2024-01-06 23:31] LABS: UA COLLECTION TYPE CLN CATCH MIDSTREAM
[2024-01-07 00:35] VITALS: BP 152/78; PULSE 70; RESP 16; TEMP 97.8; O2SAT 95
== END 2024-01-07 00:39 | disposition home or self-care (01) ==
LOC: ER 17:58
DX: I88.0 Nonspecific mesenteric lymphadenitis (principal); I10 Essential (primary) hypertension; Z88.2 Allergy status to sulfonamides; Z79.899 Other long term (current) drug therapy; Z90.710 Acquired absence of both cervix and uterus
CPT/HCPCS: 36415; 74176; 80053; 81003; 81025; 83690; 85025; 99284

== ENCOUNTER 2024-01-22 09:03 | Outpatient (CLI) | payer BC ==
[2024-01-22] VITALS (7 sets, daily range): BP systolic 128–149; BP diastolic 57–73; PULSE 56–85; RESP 18; O2SAT 97–100
[2024-01-22] MEDS ORDERED: normal saline 1000ml 1,000 ML IV SCH (09:35)
[2024-01-22] MEDS ORDERED: nitroGLYCERIN 0.4mg SUBLingual tab SL PRN (09:35)
[2024-01-22] MEDS ORDERED: aminophylline 250mg/10ml inj. IV PRN (09:35)
[2024-01-22] MEDS: regadenoson 0.4mg/5ml syringe IV ONE (10:19)
== END 2024-01-22 23:59 | disposition home or self-care (01) ==
LOC: RAD 09:03
PROVIDERS: ATTEND Internal Medicine Interventional Cardiology
DX: Z01.818 Encounter for other preprocedural examination (principal); I20.89 Other forms of angina pectoris
CPT/HCPCS: 78452; 93017; A9500; J2785; J7030; J0280

== ENCOUNTER 2024-02-01 09:01 | Outpatient (CLI) | payer BC ==
[2024-02-01 09:56] LABS: BILIRUBIN,URINE NEGATIVE (Neg); CLARITY,URINE SLIGHTLY CLOUDY (Clear); COLOR,URINE YELLOW (Yellow); GLUCOSE, URINE NEGATIVE (Neg); KETONES,URINE NEGATIVE (Neg); LEUKOCYTE ESTERASE ,URINE NEGATIVE (Neg); NITRITES, URINE NEGATIVE (Neg); OCCULT BLOOD,URINE NEGATIVE (Neg); PH,URINE 5.5 (4.8-8.0); PROTEIN,URINE NEGATIVE (Neg); UROBILINOGEN,URINE 0.2 E.U/dL (0.2-1.0)
[2024-02-01 09:57] LABS: BASOPHILS # (AUTO) 0.1 X10'3 (0-0.2); EOSINOPHILS # (AUTO) 0.1 X10'3 (0-0.9); HEMATOCRIT 43.6 % (35.0-45.0); HEMOGLOBIN 14.4 g/dl (12.0-16.0); LYMPHOCYTES # (AUTO) 1.3 X10'3 (1.1-4.8); LYMPHOCYTES % (AUTO) 22.3 % (21-51); MEAN CORPUSCULAR HEMOGLOBIN 29.4 PG (27.0-31.0); MEAN CORPUSCULAR HGB CONC 33.1 g/dL (33.0-36.5); MEAN CORPUSCULAR VOLUME 88.7 FL (78-98); MONOCYTES # (AUTO) 0.4 X10'3 (0-0.9); MONOCYTES % (AUTO) 7.5 % (2-12); NEUTROPHILS # (AUTO) 3.8 X10'3 (1.8-7.7); NEUTROPHILS % (AUTO) 67.2 % (42-75); PLATELET COUNT 214 X10'3 (140-440); RED BLOOD COUNT 4.92 X10'6 (4.20-5.60); WHITE BLOOD COUNT 5.7 X10'3 (4.5-11.0)
[2024-02-01 10:03] LABS: UA COLLECTION TYPE CLN CATCH MIDSTREAM
[2024-02-01 10:15] LABS: RBC,URINE 0-2 /HPF (0-2); SQUAMOUS EPITHELIAL CELL,UR MODERATE /LPF (FEW); WBC,URINE 0-4 /HPF (0-4)
[2024-02-01 10:16] LABS: BACTERIA,URINE FEW /HPF (Neg)
[2024-02-01 10:20] LABS: HEMOGLOBIN A1C 6.1 % (4.5-6.2)
[2024-02-01 10:27] LABS: ALANINE AMINOTRANSFERASE 31 U/L (12-78); ALBUMIN 3.4 G/DL (3.4-5.0); ALKALINE PHOSPHATASE 61 IU/L (46-116); ANION GAP 8 (8-16); ASPARTATE AMINO TRANSFERASE 15 U/L (10-37); BILIRUBIN,TOTAL 0.2 MG/DL (0.1-1.0); BLOOD UREA NITROGEN 14 MG/DL (7-18); BUN/CREATININE RATIO 21.2 (10.0-20.0); CALCIUM 8.8 MG/DL (8.5-10.1); CHLORIDE 107 MMOL/L (99-107); CHOL/HDL RATIO 3.9 (0.00-4.99); CHOLESTEROL 174 MG/DL (0-200); CREATININE 0.66 MG/DL (0.40-0.90); FREE T4 (FREE THYROXINE) 0.89 NG/DL (0.73-1.40); GLUCOSE 110 MG/DL (70-104); HDL CHOLESTEROL 45 MG/DL (35-60); LDL CHOLESTEROL 99 MG/DL (50-100); SODIUM 143 MMOL/L (135-145); TOTAL CARBON DIOXIDE 27.7 MMOL/L (24-32); TOTAL PROTEIN 6.9 G/DL (6.4-8.2); TRIGLYCERIDES 206 MG/DL (20-135); eGFR > 90 ML/MIN
[2024-02-02 15:39] LABS: FOLATE SERUM(FOLIC) 10.2 ng/mL (>3.0)
== END 2024-02-01 23:59 | disposition home or self-care (01) ==
LOC: LAB 09:01
PROVIDERS: ATTEND Internal Medicine
DX: E78.2 Mixed hyperlipidemia (principal); I10 Essential (primary) hypertension; R73.03 Prediabetes; M23.91 Unspecified internal derangement of right knee; M25.561 Pain in right knee; R63.5 Abnormal weight gain; R06.09 Other forms of dyspnea; Z91.89 Other specified personal risk factors, not elsewhere classified; Z82.49 Family history of ischemic heart disease and other diseases of the circulatory system
CPT/HCPCS: 36415; 80053; 80061; 81001; 82607; 82746; 83036; 84439; 84443; 85025; 85651

== ENCOUNTER 2024-03-09 09:28 | Inpatient (IN) | payer BC ==
[2024-03-03 15:26] LABS: BASOPHILS # (AUTO) 0.1 X10'3 (0-0.2); BASOPHILS % (AUTO) 1.1 % (0-1); EOSINOPHILS # (AUTO) 0.2 X10'3 (0-0.9); EOSINOPHILS % (AUTO) 2.3 % (0-6); LYMPHOCYTES # (AUTO) 1.6 X10'3 (1.1-4.8); LYMPHOCYTES % (AUTO) 23.2 % (21-51); MEAN CORPUSCULAR HEMOGLOBIN 29.3 PG (27.0-31.0); MEAN CORPUSCULAR HGB CONC 32.9 g/dL (33.0-36.5); MEAN CORPUSCULAR VOLUME 89.2 FL (78-98); MEAN PLATELET VOLUME 9.1 FL (7.4-10.4); MONOCYTES # (AUTO) 0.5 X10'3 (0-0.9); NEUTROPHILS # (AUTO) 4.4 X10'3 (1.8-7.7); NEUTROPHILS % (AUTO) 65.4 % (42-75); PRE OP HEMATOCRIT 43.8 % (35.0-45.0); PRE OP HEMOGLOBIN 14.4 g/dL (12.0-16.0); PRE OP PLATELET COUNT 226 X10'3 (140-440); PRE OP WHITE BLOOD COUNT 6.7 10'3 (4.8-10.8); RED BLOOD COUNT 4.91 X10'6 (4.20-5.60)
[2024-03-03 15:47] LABS: ALBUMIN 3.8 G/DL (3.4-5.0); ALBUMIN/GLOBULIN RATIO 1.1 (1.1-1.5); ALKALINE PHOSPHATASE 71 IU/L (46-116); BLOOD UREA NITROGEN 17 MG/DL (7-18); BUN/CREATININE RATIO 23.9 (10.0-20.0); CALCIUM 8.6 MG/DL (8.5-10.1); CHLORIDE 108 MMOL/L (99-107); CREATININE 0.71 MG/DL (0.40-0.90); PRE OP ALT 28 U/L (30-65); PRE OP ANION GAP 3 (8-16); PRE OP AST 7 U/L (10-37); PRE OP BILIRUB, TOTAL 0.3 MG/DL (0.0-1.0); PRE OP SODIUM 141 MMOL/L (135-145); TOTAL CARBON DIOXIDE 30.1 MMOL/L (24-32); TOTAL PROTEIN 7.2 G/DL (6.4-8.2); eGFR 84 ML/MIN
[2024-03-03 16:04] LABS: PRE OP GLUCOSE 103 MG/DL (70-104)
[2024-03-09] VITALS (17 sets, daily range): BP systolic 114–176; BP diastolic 44–95; PULSE 42–87; RESP 13–74; TEMP 97.5–98.3; O2SAT 93–100
[~2024-03-09] VITALS: Ht 160 cm; Wt 95.3 kg
[2024-03-09] MEDS: vancomycin 1,500 MG in NS 300ml IV soln IV ONE (05:30)
[2024-03-09] MEDS: tranexamic acid inj. 1,000 MG in normal saline IV soln 100ML IV ONE (06:00)
[2024-03-09] MEDS: cefazolin 2gm/D5W 100mL 100 ML IV ONE (06:00)
[2024-03-09] MEDS: ROPIVAcaine inj 200 MG, epiNEPHrine inj 0.6 MG, morphine 10mg/ml inj. 5 MG in normal sa... IU ONE (06:02)
[~2024-03-09 09:28] MED LIST changes: +ACET-1025 PO; -ACET-2319 PO; +CALC500T11 PO; +CELE-127 PO; +D-MANNOSE PO; +LACT1CAP65 PO; +MAGNESIUM PO; +MELA10TA2 PO; -NITR100C6 PO; -PHEN-716 PO
[2024-03-09] MEDS ORDERED: ketorolac trometh. 30mg/ml inj. ONE (10:13)
[2024-03-09] MEDS ORDERED: vancomycin 1,000mg inj ONE (10:13)
[2024-03-09] MEDS ORDERED: BUPIVAcaine/dex-water/PF 7.5 mg/ml 2ml ampul ONE (10:56)
[2024-03-09] MEDS ORDERED: tetracaine 1% (10mg/ml) pres. free inj. ONE (10:59)
[2024-03-09] MEDS ORDERED: MIDAZolam 1mg/ml 10ml vial ONE (11:00)
[2024-03-09] MEDS ORDERED: fentaNYL/PF 50MCG/1 ML 2ML syringe ONE (11:00)
[2024-03-09] MEDS ORDERED: morphine 4 MG/ML inj SYRINge IV PRN (12:10)
[2024-03-09] MEDS: ROPIVAcaine 0.2%/PF PUMP/bolus 545 ML ADDCANAL SCH (12:10)
[2024-03-09] MEDS ORDERED: ondansetron/PF 4mg/2ml inj IV PRN ×2 (12:10→14:40)
[2024-03-09] MEDS ORDERED: meperidine/PF 25mg/ml syringe IV PRN ×3 (12:10)
[2024-03-09] MEDS ORDERED: morphine 2 MG/ML inj. syringe IV PRN (12:10)
[2024-03-09] MEDS ORDERED: proCHLORperazine 10 MG/2 ml inj IV PRN (12:10)
[2024-03-09] MEDS ORDERED: ROPIVAcaine 0.2% (10 MG/5 ML) BOLUS INJECTION ADDCANAL PRN (12:10)
[2024-03-09] MEDS ORDERED: ringers solution, lacted 1,000 ML IV SCH (12:10)
[2024-03-09] MEDS: ROPIVAcaine 0.5% (5mg/ml) 30ml vial IJ ONE (13:38)
[2024-03-09] MEDS: epiNEPHrine 1 mg/ml inj IM ONE (13:38)
[2024-03-09] MEDS: morphine 10mg/ml inj. IM ONE (13:39)
[2024-03-09] MEDS ORDERED: propofol inj 20 ML IV ONE ×3 (13:46)
[2024-03-09] MEDS ORDERED: ROPIVAcaine 0.5% (5mg/ml) 30ml vial ONE (13:46)
[2024-03-09] MEDS ORDERED: naloxone 0.4 mg/ml inj IV PRN ×2 (14:40)
[2024-03-09] MEDS ORDERED: diphenhydrAMINE 25mg capsule PO PRN ×4 (14:40)
[2024-03-09] MEDS ORDERED: bisacodyl 10mg suppository rectal RC PRN ×2 (14:40)
[2024-03-09] MEDS ORDERED: acetaminophen 325mg tablet PO PRN ×2 (14:40)
[2024-03-09] MEDS ORDERED: magnesium hydroxide 30ml (MOM) UD suspension PO PRN ×2 (14:40)
[2024-03-09] MEDS: ceFAZolin/D5W- 1GM premix 50 ML IV SCH (15:51)
[2024-03-09] MEDS: oxyCODONE IR 5mg (immed. release) tablet PO PRN ×2 (15:51→20:11)
[2024-03-09] MEDS: ringers solution, lacted 1,000 ML IV SCH ×2 (17:01→17:45)
[2024-03-09] MEDS: famotidine 20mg tablet PO ONE (17:02)
[2024-03-09] MEDS: HYDROmorphone inj. 0.5 MG/0.5 ML DISP.SYRIN IV PRN (17:57)
[2024-03-09] MEDS: tranexamic acid inj. 1,000 MG in normal saline 100ml IV soln 90 ML IV ONE (18:51)
[2024-03-09] MEDS: potassium Cl 20mEq in NS 1,000 ML IV SCH (19:49)
[2024-03-09] MEDS: vancomycin/NS 1 GM ADD-VANTAGE 250 ML IV SCH (20:10)
[2024-03-09] MEDS: gabapentin 300mg capsule PO SCH (20:11)
[2024-03-09] MEDS: sennosides 8.6mg tablet PO SCH (20:12)
[2024-03-09] MEDS: acetaminophen 325mg tablet PO SCH (20:12)
[2024-03-09] MEDS: Melatonin 3mg tablet PO SCH (20:12)
[2024-03-09] MEDS: ondansetron/PF 4mg/2ml inj IV PRN (20:26)
[2024-03-09] MEDS ORDERED: sennosides 8.6mg tablet PO SCH (21:00)
[2024-03-10] VITALS (7 sets, daily range): BP systolic 123–142; BP diastolic 57–72; PULSE 62–72; RESP 12–18; TEMP 97.4–98.3; O2SAT 91–96
[2024-03-10 06:36] LABS: BASOPHILS % (AUTO) 0.2 % (0-1); EOSINOPHILS % (AUTO) 0.3 % (0-6); HEMATOCRIT 35.7 % (35.0-45.0); HEMOGLOBIN 11.9 g/dl (12.0-16.0); LYMPHOCYTES % (AUTO) 9.7 % (21-51); MEAN CORPUSCULAR HEMOGLOBIN 29.7 PG (27.0-31.0); MEAN CORPUSCULAR HGB CONC 33.5 g/dL (33.0-36.5); MEAN CORPUSCULAR VOLUME 88.7 FL (78-98); MEAN PLATELET VOLUME 8.9 FL (7.4-10.4); MONOCYTES # (AUTO) 0.8 X10'3 (0-0.9); MONOCYTES % (AUTO) 7.4 % (2-12); NEUTROPHILS # (AUTO) 8.4 X10'3 (1.8-7.7); NEUTROPHILS % (AUTO) 82.4 % (42-75); PLATELET COUNT 170 X10'3 (140-440); RED BLOOD COUNT 4.02 X10'6 (4.20-5.60); RED CELL DISTRIBUTION WIDTH 12.8 % (11.5-14.5); WHITE BLOOD COUNT 10.2 X10'3 (4.5-11.0)
[2024-03-10 06:51] LABS: APTT 25 SECONDS (22-32); PROTHROMBIN TIME 10.8 SECONDS (9.0-12.0)
[2024-03-10 07:25] LABS: ALANINE AMINOTRANSFERASE 21 U/L (12-78); ALKALINE PHOSPHATASE 50 IU/L (46-116); ANION GAP 5 (8-16); ASPARTATE AMINO TRANSFERASE 17 U/L (10-37); BILIRUBIN,TOTAL 0.4 MG/DL (0.1-1.0); BLOOD UREA NITROGEN 11 MG/DL (7-18); BUN/CREATININE RATIO 17.7 (10.0-20.0); CALCIUM 7.9 MG/DL (8.5-10.1); CHLORIDE 106 MMOL/L (99-107); CHOLESTEROL 151 MG/DL (0-200); CREATININE 0.62 MG/DL (0.40-0.90); GLUCOSE 103 MG/DL (70-104); HDL CHOLESTEROL 38 MG/DL (35-60); LDL CHOLESTEROL 90 MG/DL (50-100); POTASSIUM 4.1 MMOL/L (3.5-5.1); SODIUM 138 MMOL/L (135-145); TOTAL CARBON DIOXIDE 26.9 MMOL/L (24-32); TOTAL PROTEIN 5.9 G/DL (6.4-8.2); TRIGLYCERIDES 141 MG/DL (20-135); eCRCL 80 ML/MIN; eGFR > 90 ML/MIN
[2024-03-10] MEDS: HYDROmorphone 1 mg/ml syringe IV PRN (07:46)
[2024-03-10] MEDS: amLODIPine 5mg tablet PO SCH (07:46)
[2024-03-10] MEDS: enoxaparin 40mg/0.4ml syringe SQ SCH (07:51)
[2024-03-10] MEDS ORDERED: enoxaparin 40mg/0.4ml syringe SQ SCH (08:00)
[2024-03-10] MEDS: celeCOXIB 100mg capsule PO SCH (20:40)
[2024-03-11 06:00] VITALS: BP 127/55; PULSE 66; RESP 16; TEMP 97.9; O2SAT 91
[2024-03-11 07:25] LABS: BASOPHILS % (AUTO) 0.4 % (0-1); EOSINOPHILS % (AUTO) 0.5 % (0-6); HEMATOCRIT 33.8 % (35.0-45.0); HEMOGLOBIN 11.1 g/dl (12.0-16.0); LYMPHOCYTES # (AUTO) 1.2 X10'3 (1.1-4.8); LYMPHOCYTES % (AUTO) 14.2 % (21-51); MEAN CORPUSCULAR HEMOGLOBIN 29.7 PG (27.0-31.0); MEAN CORPUSCULAR HGB CONC 32.8 g/dL (33.0-36.5); MEAN CORPUSCULAR VOLUME 90.6 FL (78-98); MEAN PLATELET VOLUME 9.3 FL (7.4-10.4); MONOCYTES # (AUTO) 0.9 X10'3 (0-0.9); MONOCYTES % (AUTO) 10.7 % (2-12); NEUTROPHILS # (AUTO) 6.2 X10'3 (1.8-7.7); NEUTROPHILS % (AUTO) 74.2 % (42-75); PLATELET COUNT 161 X10'3 (140-440); RED BLOOD COUNT 3.74 X10'6 (4.20-5.60); RED CELL DISTRIBUTION WIDTH 13.1 % (11.5-14.5); WHITE BLOOD COUNT 8.3 X10'3 (4.5-11.0)
[2024-03-11 07:30] VITALS: BP_SYST 127; PULSE 66
[2024-03-11 07:49] LABS: ALANINE AMINOTRANSFERASE 19 U/L (12-78); ALBUMIN 2.9 G/DL (3.4-5.0); ALBUMIN/GLOBULIN RATIO 0.9 (1.1-1.5); ALKALINE PHOSPHATASE 50 IU/L (46-116); ANION GAP 4 (8-16); ASPARTATE AMINO TRANSFERASE 6 U/L (10-37); BILIRUBIN,TOTAL 0.4 MG/DL (0.1-1.0); BLOOD UREA NITROGEN 13 MG/DL (7-18); BUN/CREATININE RATIO 18.6 (10.0-20.0); CHLORIDE 108 MMOL/L (99-107); GLUCOSE 108 MG/DL (70-104); POTASSIUM 4.2 MMOL/L (3.5-5.1); SODIUM 138 MMOL/L (135-145); TOTAL CARBON DIOXIDE 25.9 MMOL/L (24-32); eCRCL 71 ML/MIN; eGFR 85 ML/MIN
[2024-03-11 07:52] LABS: APTT 29 SECONDS (22-32); INR 1.1 INR; PROTHROMBIN TIME 11.2 SECONDS (9.0-12.0)
[2024-03-11 08:00] VITALS: RESP 16; O2SAT 97
[2024-03-11] MEDS ORDERED: RIVA10TA PO (13:20)
[2024-03-11 14:02] VITALS: RESP 16
[2024-03-11] MEDS ORDERED: acetaminophen 325mg tablet PO PRN (14:40)
== END 2024-03-11 14:40 | disposition home health service (06) | DRG 470 ==
LOC: PAS IN 09:28 → ORTHO 4S 15:37
PROVIDERS: ADMIT Orthopaedic Surgery; ATTEND Orthopaedic Surgery
PROC: 3E0T3BZ Introduction of Anesthetic Agent into Peripheral Nerves and Plexi, Percutaneous Approach (ICD-10-PCS; 2024-03-09)
PROC: 0SRC0J9 Replacement of Right Knee Joint with Synthetic Substitute, Cemented, Open Approach (ICD-10-PCS; principal; 2024-03-09 10:56)
DX: M17.11 Unilateral primary osteoarthritis, right knee (principal); R71.0 Precipitous drop in hematocrit; I10 Essential (primary) hypertension; Z88.8 Allergy status to other drugs, medicaments and biological substances; Z88.2 Allergy status to sulfonamides; Z86.718 Personal history of other venous thrombosis and embolism; Z79.899 Other long term (current) drug therapy
CPT/HCPCS: Z7506; Z7508; 36415; 73560; 80053; 80061; 82948; 83605; 84145; 85025; 85610; 85730; 87040; 87081; 97110; 97116; 97161; 97530; A4215; A6253; A6258; A6446; A6449; A7000; C1713; C1758; C1776; G0378; J0171; J0690; J1170; J1650; J1885; J2250; J2274; J2405; J2704; J2795; J3010; J3370; J3480; J3490; J7120

== ENCOUNTER 2024-08-31 10:56 | Outpatient (CLI) | payer BC ==
[~2024-08-31 10:56] MED LIST changes: +RIVA10TA PO
[2024-08-31 11:30] LABS: BILIRUBIN,URINE NEGATIVE (Neg); CLARITY,URINE CLEAR (Clear); COLOR,URINE YELLOW (Yellow); GLUCOSE, URINE NEGATIVE (Neg); KETONES,URINE NEGATIVE (Neg); LEUKOCYTE ESTERASE ,URINE NEGATIVE (Neg); NITRITES, URINE NEGATIVE (Neg); OCCULT BLOOD,URINE NEGATIVE (Neg); PROTEIN,URINE NEGATIVE (Neg); UROBILINOGEN,URINE 0.2 E.U/dL (0.2-1.0)
[2024-08-31 11:31] LABS: UA COLLECTION TYPE CLN CATCH MIDSTREAM
[2024-08-31 11:33] LABS: BASOPHILS # (AUTO) 0.1 X10'3 (0-0.2); BASOPHILS % (AUTO) 1.1 % (0-1); EOSINOPHILS # (AUTO) 0.1 X10'3 (0-0.9); EOSINOPHILS % (AUTO) 2.8 % (0-6); HEMATOCRIT 40.8 % (35.0-45.0); HEMOGLOBIN 13.5 g/dl (12.0-16.0); LYMPHOCYTES # (AUTO) 1.3 X10'3 (1.1-4.8); LYMPHOCYTES % (AUTO) 23.7 % (21-51); MEAN CORPUSCULAR HEMOGLOBIN 29.4 PG (27.0-31.0); MEAN CORPUSCULAR HGB CONC 33.2 g/dL (33.0-36.5); MEAN CORPUSCULAR VOLUME 88.7 FL (78-98); MEAN PLATELET VOLUME 8.8 FL (7.4-10.4); MONOCYTES # (AUTO) 0.5 X10'3 (0-0.9); MONOCYTES % (AUTO) 8.7 % (2-12); NEUTROPHILS # (AUTO) 3.4 X10'3 (1.8-7.7); NEUTROPHILS % (AUTO) 63.7 % (42-75); PLATELET COUNT 236 X10'3 (140-440); RED CELL DISTRIBUTION WIDTH 12.7 % (11.5-14.5); WHITE BLOOD COUNT 5.3 X10'3 (4.5-11.0)
[2024-08-31 11:53] LABS: ALANINE AMINOTRANSFERASE 25 U/L (12-78); ALBUMIN 3.6 G/DL (3.4-5.0); ALBUMIN/GLOBULIN RATIO 1.1 (1.1-1.5); ALKALINE PHOSPHATASE 67 IU/L (46-116); ANION GAP 9 (8-16); ASPARTATE AMINO TRANSFERASE 14 U/L (10-37); BILIRUBIN,TOTAL 0.5 MG/DL (0.1-1.0); BLOOD UREA NITROGEN 12 MG/DL (7-18); BUN/CREATININE RATIO 17.1 (10.0-20.0); CALCIUM 8.3 MG/DL (8.5-10.1); CHLORIDE 105 MMOL/L (99-107); GLUCOSE 100 MG/DL (70-104); POTASSIUM 4.1 MMOL/L (3.5-5.1); SODIUM 143 MMOL/L (135-145); TOTAL CARBON DIOXIDE 29.2 MMOL/L (24-32); eGFR 85 ML/MIN
[2024-08-31 11:59] LABS: CHOL/HDL RATIO 4.1 (0.00-4.99); CHOLESTEROL 183 MG/DL (0-200); FREE T4 (FREE THYROXINE) 0.85 NG/DL (0.73-1.40); HDL CHOLESTEROL 45 MG/DL (35-60); LDL CHOLESTEROL 108 MG/DL (50-100); THYROID STIMULATING HORMONE 1.22 ulU/ml (0.34-4.50); TRIGLYCERIDES 202 MG/DL (20-135)
[2024-08-31 12:14] LABS: HEMOGLOBIN A1C 6.1 % (4.5-6.2)
[2024-09-02 11:14] LABS: FOLATE SERUM(FOLIC) 13.9 ng/mL (>3.0)
== END 2024-08-31 23:59 | disposition home or self-care (01) ==
LOC: RAD 10:56
PROVIDERS: ATTEND Internal Medicine
DX: Z01.818 Encounter for other preprocedural examination (principal); M17.11 Unilateral primary osteoarthritis, right knee; E78.2 Mixed hyperlipidemia; R63.5 Abnormal weight gain; I88.0 Nonspecific mesenteric lymphadenitis; I10 Essential (primary) hypertension
CPT/HCPCS: 36415; 80053; 80061; 81003; 82607; 82746; 83036; 84439; 84443; 85025; 85651

== ENCOUNTER 2025-03-24 10:17 | Outpatient (CLI) | payer BC ==
[2025-03-24 10:49] LABS: BASOPHILS # (AUTO) 0.1 X10'3 (0-0.2); BASOPHILS % (AUTO) 1.1 % (0-1); EOSINOPHILS # (AUTO) 0.1 X10'3 (0-0.9); HEMATOCRIT 42.4 % (35.0-45.0); HEMOGLOBIN 14.3 g/dl (12.0-16.0); LYMPHOCYTES # (AUTO) 1.3 X10'3 (1.1-4.8); LYMPHOCYTES % (AUTO) 23.8 % (21-51); MEAN CORPUSCULAR HEMOGLOBIN 29.4 PG (27.0-31.0); MEAN CORPUSCULAR HGB CONC 33.7 g/dL (33.0-36.5); MEAN CORPUSCULAR VOLUME 87.1 FL (78-98); MEAN PLATELET VOLUME 8.7 FL (7.4-10.4); MONOCYTES # (AUTO) 0.4 X10'3 (0-0.9); MONOCYTES % (AUTO) 7.8 % (2-12); NEUTROPHILS # (AUTO) 3.5 X10'3 (1.8-7.7); NEUTROPHILS % (AUTO) 65.3 % (42-75); PLATELET COUNT 217 X10'3 (140-440); RED BLOOD COUNT 4.87 X10'6 (4.20-5.60); RED CELL DISTRIBUTION WIDTH 12.6 % (11.5-14.5); WHITE BLOOD COUNT 5.4 X10'3 (4.5-11.0)
[2025-03-24 10:58] LABS: HEMOGLOBIN A1C 5.9 % (4.5-6.2)
[2025-03-24 11:19] LABS: ALANINE AMINOTRANSFERASE 24 U/L (12-78); ALBUMIN 3.6 G/DL (3.4-5.0); ALBUMIN/GLOBULIN RATIO 1.1 (1.1-1.5); ALKALINE PHOSPHATASE 75 IU/L (46-116); ANION GAP 6 (8-16); ASPARTATE AMINO TRANSFERASE 13 U/L (10-37); BILIRUBIN,TOTAL 0.4 MG/DL (0.1-1.0); BLOOD UREA NITROGEN 12 MG/DL (7-18); BUN/CREATININE RATIO 16.2 (10.0-20.0); CALCIUM 8.5 MG/DL (8.5-10.1); CHLORIDE 107 MMOL/L (99-107); CHOL/HDL RATIO 4.2 (0.00-4.99); CHOLESTEROL 175 MG/DL (0-200); CREATININE 0.74 MG/DL (0.40-0.90); FREE T4 (FREE THYROXINE) 0.99 NG/DL (0.73-1.40); GLUCOSE 95 MG/DL (70-104); HDL CHOLESTEROL 42 MG/DL (35-60); LDL CHOLESTEROL 101 MG/DL (50-100); POTASSIUM 4.1 MMOL/L (3.5-5.1); SODIUM 142 MMOL/L (135-145); THYROID STIMULATING HORMONE 1.66 ulU/ml (0.34-4.50); TOTAL CARBON DIOXIDE 28.6 MMOL/L (24-32); TOTAL PROTEIN 6.9 G/DL (6.4-8.2); TRIGLYCERIDES 154 MG/DL (20-135); eGFR 80 ML/MIN
== END 2025-03-24 23:59 | disposition home or self-care (01) ==
LOC: RAD 10:17
PROVIDERS: ATTEND Internal Medicine
DX: I10 Essential (primary) hypertension (principal); R73.03 Prediabetes; E78.2 Mixed hyperlipidemia; R63.5 Abnormal weight gain; R53.82 Chronic fatigue, unspecified; L30.9 Dermatitis, unspecified
CPT/HCPCS: 36415; 80053; 80061; 83036; 84439; 84443; 85025; 85651

== ENCOUNTER 2025-09-08 10:02 | Outpatient (CLI) | payer BC ==
[2025-09-08 10:40] LABS: LEUKOCYTE ESTERASE ,URINE NEGATIVE (Neg); NITRITES, URINE NEGATIVE (Neg); OCCULT BLOOD,URINE NEGATIVE (Neg)
[2025-09-08 10:42] LABS: UA COLLECTION TYPE CLN CATCH MIDSTREAM
[2025-09-08 10:46] LABS: MEAN PLATELET VOLUME 9.1 FL (7.4-10.4); RED CELL DISTRIBUTION WIDTH 12.6 % (11.5-14.5)
[2025-09-08 11:06] LABS: CHOL/HDL RATIO 4.2 (0.00-4.99); CREATININE 0.66 MG/DL (0.40-0.90); LDL CHOLESTEROL 122 MG/DL (50-100); TOTAL CARBON DIOXIDE 28.8 MMOL/L (24-32); eGFR > 90 ML/MIN
== END 2025-09-08 23:59 | disposition home or self-care (01) ==
LOC: RAD 10:02
PROVIDERS: ATTEND Internal Medicine
DX: I10 Essential (primary) hypertension (principal); E78.2 Mixed hyperlipidemia; R73.03 Prediabetes; L30.9 Dermatitis, unspecified; R53.82 Chronic fatigue, unspecified; Z96.651 Presence of right artificial knee joint; E66.9 Obesity, unspecified
CPT/HCPCS: 36415; 80053; 80061; 81003; 82607; 82746; 83036; 84439; 84443; 85025; 85651